=== PATIENT | female | born 1965 | race Caucasian/White ===

== ENCOUNTER 2017-12-29 09:31 | Emergency (ER) | payer BC, OTHER ==
[2017-12-29 09:50] VITALS: BP 122/62
--- NOTE | 2017-12-29 09:58 | UC ---
Respiratory Complaint HPI - HPI Summary HPI Summary: 52 year old female with cough, sinus pressure. Coughing and sneezing for 2 weeks ; head and chest congestion; pain in nose, facial fullness; hx of asthma and asthmatic bronchitis . also with sinus pressure for 2 week and worsening.failed otc and previous nasal sprays. [ End ] - History of Current Complaint Chief Complaint: UCRespiratory Stated Complaint: RESPIRATORY Time Seen by Provider: 12/29/17 09:52 Hx Obtained From: Patient Hx Last Menstrual Period: yrs ?: No Onset/Duration: Gradual Onset Timing: Constant Pain Intensity: 0 Character: Cough: Productive Associated Signs And Symptoms: Positive: Wheezing, Nasal Congestion, Sinus Discomfort Related History: Similar Episode/Dx as: - Allergies/Home Medications Allergies/Adverse Reactions: Allergies Allergy/AdvReac Type Severity Reaction Status Date / Time azithromycin Allergy Intermediate Hives Verified 12/29/17 09:51 shellfish/iodine Allergy contact Uncoded 12/29/17 09:52 dermatitis Home Medications: Home Medications Albuterol HFA INHALER* [Ventolin HFA Inhaler*] 2 puff INH DAILY PRN 12/29/17 [ History Confirmed 12/29/17] PMH/Surg Hx/FS Hx/Imm Hx Previously Healthy: Yes Respiratory History: Asthma GI/ History: Gastroesophageal Reflux, Other - c diff Other GI/ History: c diff Psychological History: Anxiety, Depression - Surgical History Surgical History: Yes Surgery Procedure, Year, and Place: knee replacement/left. uterine ablation. surgery for GERD. GI ulcers - Family History Known Family History: Positive: Hypertension - Social History Occupation: Employed Full-time - [employer] Alcohol Use: None Substance Use Type: None Smoking Status (MU): Never Smoked Tobacco - Immunization History Most Recent Influenza Vaccination: [id number] Review of Systems Constitutional: Fatigue ENT: Sore Throat, Nasal Discharge, Sinus Congestion, Sinus Pain/Tenderness Respiratory: Cough Is Patient Immunocompromised?: No All Other Systems Reviewed And Are Negative: Yes Physical Exam Triage Information Reviewed: Yes Appearance: Well-Appearing, No Pain Distress, Well-Nourished Vital Signs: Initial Vital Signs Temp 99 F 12/29/17 09:43 Pulse 82 12/29/17 09:43 Resp 20 12/29/17 09:43 BP 122/62 12/29/17 09:43 Pulse Ox 95 12/29/17 09:43 Vital Signs Reviewed: Yes Eye Exam: Normal ENT Exam: Normal ENT: Positive: Nasal congestion, TM dull, Sinus tenderness Dental Exam: Normal Neck exam: Normal Neck: Positive: 1 Respiratory Exam: Normal Cardiovascular Exam: Normal Musculoskeletal Exam: Normal Neurological Exam: Normal Psychological Exam: Normal Skin Exam: Normal UC Diagnostic Evaluation - Laboratory O2 Sat by Pulse Oximetry: 95 Respiratory Course/Dx - Course Course Of Treatment: Could be allergy mediated as she states her wheeze or cough worsened 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 Discussed supportive care, start medrol due to her increasesdd use of CLOVIS AND if not improved in a few days then start augmentin and she is aware of SE including C diff which she had years ago after 3 rounds of different abx - Differential Dx/Diagnosis Differential Diagnosis/HQI/PQRI: Asthma, Bronchitis, Lower Resp Infection, Sinusitis Provider Diagnoses: Asthmatic bronchitis. Sinusitis Discharge - Sign-Out/Discharge Documenting (check all that apply): Patient Departure - Discharge Plan Condition: Good Disposition: HOME Prescriptions: Amoxicillin/Clavulanate TAB* [Augmentin TAB 875*] 875 mg PO BID 10 Days #20 tab methylPREDNISolone [Medrol Dosepak 4 MG*] 0 mg PO .SEE LISA INSTRUCTION #1 tab Patient Education Materials: Asthma (ED), Sinusitis (ED) Referrals: Shabana Robertson PA [Primary Care Provider] - 4 Days Additional Instructions: As we discussed please start the steroid medrol to help with your symptoms and if your symptoms are worsening or not improved then you may start THE ANTIBIOTIC but please be aware of side effects including C diff. Feel better ! - Billing Disposition and Condition Condition: GOOD Disposition: Home
== END 2017-12-29 10:20 | disposition home or self-care (01) ==
LOC: UCCORT 09:31
DX: J45.909 Unspecified asthma, uncomplicated (principal); J32.9 Chronic sinusitis, unspecified; Z88.1 Allergy status to other antibiotic agents; Z91.013 Allergy to seafood; Z96.652 Presence of left artificial knee joint
CPT/HCPCS: 99212; G0463

== ENCOUNTER 2018-06-15 15:52 | Emergency (ER) | payer BC | END 2018-06-15 15:53 | disposition left against medical advice (07) | LOC: UCCORT 15:52 | DX: R19.7 Diarrhea, unspecified (principal); R11.10 Vomiting, unspecified; Z53.21 Procedure and treatment not carried out due to patient leaving prior to being seen by health care provider ==